=== PATIENT | male | born 1970 ===

== ENCOUNTER → 2023-05-12 | Day surgery (SDC) | payer OTHER | LOC: SPEC 08:57 | PROVIDERS: ATTEND Nurse Practitioner Family | PROC: 06HY33Z Insertion of Infusion Device into Lower Vein, Percutaneous Approach (ICD-10-PCS; principal; 2023-05-12) | DX: I48.91 Unspecified atrial fibrillation (principal) | CPT/HCPCS: 36569; C1751 ==